=== PATIENT | male | born 1935 | race American Indian/Alaskan Native ===

== ENCOUNTER 2018-05-20 02:52 | Emergency (ER) | payer MEDICARE, OTHER ==
[2018-05-20] MEDS ORDERED: NACL 0.9% 1000 ML 2,000 ML IV ONE (03:00)
[2018-05-20] MEDS ORDERED: LEVOPHED DRIP 4 MG/NS 250 ML 4 MG/250 ML BAG IV SCH (03:00)
[2018-05-20] MEDS ORDERED: LEVOPHED DRIP 4 MG/NS 250 ML 4 MG/250 ML BAG IV ONE (03:00)
[2018-05-20] MEDS ORDERED: INTROPIN DRIP 800 MG/D5W 250 ML 800 MG/250 ML BAG IV ONE (03:00)
[2018-05-20] MEDS ORDERED: NACL 0.9% 1000 ML 1,000 ML ONE ×3 (03:01→05:38)
--- NOTE | 2018-05-20 03:53 | XRay Report ---
FINAL REPORT PROCEDURE: XR CHEST 1V AP TECHNIQUE: Chest radiograph anteroposterior view. CPT 21446 HISTORY: cardiac arrest COMPARISON: No prior studies are available for comparison. FINDINGS: Heart: Normal. Mediastinum/Vessels: Normal. Lungs/Pleural space: There is a diffuse reticular nodular pattern throughout both lungs. Acute infiltrate is suspected. No effusion or pneumothorax.. Bony thorax: No acute osseous abnormality. Life support devices: The endotracheal tube ends 4 centimeters above the [place]. A nasogastric tube ends below the hemidiaphragms.. IMPRESSION: There is a diffuse reticular nodular pattern infiltrates throughout both lungs. The endotracheal tube and nasogastric tube are properly positioned..
[2018-05-20 04:02] LABS: Hematocrit 24.3 % (35.5-45.6); Hemoglobin 7.8 gm/dl (11.8-15.2); Mean Corpuscular HGB Conc 32 % (32-34); Mean Corpuscular Hemoglobin 32 pg (28-32); Mean Corpuscular Volume 99 fl (84-94); Platelet Count 358 K/mm3 (140-440); Red Blood Count 2.46 M/mm3 (3.65-5.03); Red Cell Distribution Width 16.1 % (13.2-15.2)
--- NOTE | 2018-05-20 04:07 | Cat Scan Report ---
FINAL REPORT PROCEDURE: CT HEAD/BRAIN WO CON TECHNIQUE: Computerized tomography of the head was performed without contrast material. HISTORY: ams, arrest COMPARISON: No prior studies are available for comparison. FINDINGS: Skull and scalp: Normal. Paranasal sinuses: Normal. Ventricles and subarachnoid spaces: Normal. Cerebrum: There is no evidence of acute intracranial hemorrhage, hematoma or infarction. Minimal atrophy is noted. Slight periventricular deep white matter change.. Cerebellum and brainstem: No evidence of hemorrhage, acute infarction or mass. Vasculature: Normal. Comments: None. IMPRESSION: There is no evidence of an acute intracranial process. Mild atrophy and slight periventricular deep white matter change.
[2018-05-20 04:13] LABS: INR 1.67 (0.87-1.13)
[2018-05-20 04:14] LABS: Partial Thromboplastin Time 41.5 Sec. (24.2-36.6)
[2018-05-20 04:25] LABS: Alanine Aminotransferase 44 units/L (7-56); Albumin 2.2 g/dL (3.9-5); Bilirubin,Direct 0.6 mg/dL (0-0.2)
[2018-05-20 05:09] LABS: BUN/Creatinine Ratio 16; Blood Urea Nitrogen 16 mg/dL (9-20); Hemolysis Index 9
[2018-05-20 05:22] LABS: Band Neutrophils # (Manual) 0.2 K/mm3; Basophils % (Manual) 0 % (0.0-1.8); Eosinophils % (Manual) 0 % (0.0-4.3); Platelet Clumps Few; Platelet Estimate Consistent w Auto; RBC Morphology Normal; Total Cells Counted 100
[2018-05-20] MEDS ORDERED: SODIUM BICARBONATE 150 MEQ in D5W 1,000 ML IV ONE (05:29)
[2018-05-20] MEDS ORDERED: NACL 0.9% 1000 ML 1,000 ML IV ONE (05:45)
[2018-05-20] MEDS ORDERED: VANCOMYCIN/NS 1 GM/250 ML 1 GM/250 ML BAG IV SCH ×2 (06:00→20:00)
[2018-05-20] MEDS ORDERED: ZOSYN/NS 4.5GM/100ML 4.5 GM/100 ML VIAL IV SCH (06:00)
--- NOTE | 2018-05-20 06:52 | Emergency Department Report ---
ED CPR HPI - General Chief Complaint: Cardiac Arrest/CPR Stated Complaint: CARDIAC ARREST Time Seen by Provider: 05/20/18 03:19 Source: EMS Mode of arrival: Stretcher Limitations: Physical Limitation - History of Present Illness Initial Comments: 82-year-old male with metastatic cancer presents to the ED and cardiac arrest. Unknown down time, patient found by . Upon EMS arrival patient was pulseless and apneic in PEA. Patient was given 3 rounds of epi and 1 amp of bicarbonate. Patient did have return of spontaneous circulation with EMS. Family states patient has no longer on chemotherapy or radiation. States pain with trying to get patient into a hospice. However, family states patient is a full code. MD Complaint: found unresponsive -: unknown Place: home Bystander CPR Performed: No Shock Advised: No Initial Findings in the Field: unresponsive, no respirations, no pulse ROSC in the Field: Yes Treatments Prior to Arrival: intubation, chest compressions, epinephrine mgs # ( 3), sodium bicarbonate (1 amp) - Related Data Allergies Allergy/AdvReac Type Severity Reaction Status Date / Time No Known Allergies Allergy Verified 05/20/18 05:02 ED Review of Systems ROS: Stated complaint: CARDIAC ARREST Other details as noted in HPI Comment: Unobtainable due to pts medical conditions (cardiac arrest) ED Past Medical Hx - Past Medical History Hx of Cancer: Yes (Colon CA spread through body.) Hx Dementia: Yes Additional medical history: Small bowel obstruction - Social History Smoking Status: Unknown if ever smoked ED Physical Exam - General Limitations: Physical Limitation General appearance: in distress - Head Head exam: Present: atraumatic, normocephalic - Eye Eye exam: Present: other (fixed and dilated) - ENT ENT exam: Present: other (ET tube in place) - Neck Neck exam: Present: normal inspection - Respiratory Respiratory exam: Present: rales - Cardiovascular Cardiovascular Exam: Present: tachycardia, other - GI/Abdominal GI/Abdominal exam: Present: soft. Absent: distended - Extremities Exam Extremities exam: Present: normal inspection - Neurological Exam Neurological exam: Present: other (GCS=3) ED Course Vital Signs 05/20/18 05/20/18 05/20/18 02:52 03:04 03:14 Temperature 97.2 F L Pulse Rate 140 H 166 H 141 H Respiratory 20 18 Rate Blood Pressure 118/84 Blood Pressure 52/32 91/65 [Left] O2 Sat by Pulse 94 100 100 Oximetry 05/20/18 05/20/18 05/20/18 03:30 03:45 04:10 Temperature Pulse Rate 103 H 95 H 76 Respiratory 17 18 18 Rate Blood Pressure Blood Pressure 101/68 102/62 121/50 [Left] O2 Sat by Pulse 100 100 97 Oximetry 05/20/18 05/20/18 05/20/18 04:30 04:45 05:00 Temperature Pulse Rate 74 72 70 Respiratory 18 18 18 Rate Blood Pressure Blood Pressure 124/73 125/77 116/84 [Left] O2 Sat by Pulse 100 100 98 Oximetry 05/20/18 05/20/18 05/20/18 05:30 05:45 06:00 Temperature Pulse Rate 67 64 65 Respiratory 17 19 18 Rate Blood Pressure Blood Pressure 87/51 98/59 116/64 [Left] O2 Sat by Pulse 100 96 97 Oximetry 05/20/18 05/20/18 05/20/18 06:15 06:30 07:28 Temperature Pulse Rate 64 63 Respiratory 19 17 17 Rate Blood Pressure Blood Pressure 120/73 115/89 [Left] O2 Sat by Pulse 100 97 97 Oximetry 05/20/18 05/20/18 05/20/18 07:31 07:45 08:00 Temperature Pulse Rate 62 67 62 Respiratory 14 15 17 Rate Blood Pressure 102/64 115/55 Blood Pressure [Left] O2 Sat by Pulse 97 98 98 Oximetry 05/20/18 05/20/18 05/20/18 08:15 08:30 08:36 Temperature Pulse Rate 63 62 67 Respiratory 13 15 Rate Blood Pressure 114/63 116/60 116/60 Blood Pressure [Left] O2 Sat by Pulse 97 97 97 Oximetry 05/20/18 05/20/18 05/20/18 08:45 09:00 09:15 Temperature Pulse Rate 67 64 61 Respiratory 13 14 14 Rate Blood Pressure 112/64 108/72 108/64 Blood Pressure [Left] O2 Sat by Pulse 97 97 97 Oximetry 05/20/18 05/20/18 05/20/18 09:30 09:45 10:01 Temperature Pulse Rate 66 66 62 Respiratory 16 16 16 Rate Blood Pressure 106/67 95/70 96/64 Blood Pressure [Left] O2 Sat by Pulse 98 97 98 Oximetry 05/20/18 05/20/18 05/20/18 10:15 10:30 10:45 Temperature Pulse Rate 66 64 60 Respiratory 15 16 16 Rate Blood Pressure 103/58 92/62 90/57 Blood Pressure [Left] O2 Sat by Pulse 92 99 Oximetry 05/20/18 05/20/18 05/20/18 11:30 12:00 12:52 Temperature Pulse Rate 52 L 57 L 51 L Respiratory Rate Blood Pressure Blood Pressure 85/51 69/43 62/37 [Left] O2 Sat by Pulse 89 88 88 Oximetry 05/20/18 13:16 Temperature Pulse Rate 37 L Respiratory Rate Blood Pressure Blood Pressure [Left] O2 Sat by Pulse 78 L Oximetry - Central Line Placement Right Femoral Consent Obtained: emergent situation Time Out Performed: Yes MD Prep: mask, gown, gloves Central Line Prep: Chlorhexidine scrub, sterile drapes applied Ultrasound Used for Placement: No Central Line Lumen Inserted: triple Bloods Obtained for Lab: No Central Line Position: good blood return, all ports aspirated, flus, sutured in place with nyl Dressing Applied: Tegaderm Patient Tolerated Procedure: well Complications: none ED Medical Decision Making - Lab Data Result diagrams: 05/20/18 03:37 05/20/18 03:37 - EKG Data -: EKG Interpreted by Sc EKG shows normal: sinus rhythm, axis, QRS complexes, ST-T waves Rate: normal - EKG Data Interpretation: other (prolonged QT) - Radiology Data Radiology results: report reviewed, image reviewed - Medical Decision Making 82-year-old male with metastatic cancer status post cardiac arrest at home. Pt did have ROSC with EMS just prior to ED arrival. Upon ED arrival pt had a pulse , but lost it soon thereafter. ACLS was initiated, pt regained pulses. Currently maxed out on dopamine drip. Head CT negative. Sodium bicarbonate drip initiated due to acidosis. CTA chest ordered to r/o PE due to patient's history of cancer. Spoke w/ Dr Raines, agrees to admit the pt and follow-up on CTA results. Spoke at length with family regarding code status since family was in process of seeking Hospice care for pt. Family currently wishes for pt to be full code. - Differential Diagnosis PE, arrythmia, ACS, CVA Critical Care Time: Yes Critical care time in (mins) excluding proc time.: 35 Critical care attestation.: If time is entered above; I have spent that time in minutes in the direct care of this critically ill patient, excluding procedure time. Critical Care Time: 35 minutes ED Disposition Clinical Impression: Cardiac arrest, Metabolic acidosis Disposition: DC-[id number] OP ADMIT IP TO THIS HOSP Is pt being admited?: Yes Condition: Critical Referrals: PRIMARY CARE,MD [Primary Care Provider] - 3-5 Days
[2018-05-20 07:12] LABS: Bacteria,Urine 1+ /HPF (Negative); Bilirubin,Urine NEG (Negative); Blood,Urine LG (Negative); Color,Urine Amber (Yellow); Mucus,Urine FEW /HPF; Protein,Urine >500 mg/dL (Negative)
--- NOTE | 2018-05-20 07:24 | History and Physical Report ---
History of Present Illness Date of examination: 05/20/18 Date of admission: 05/20/18 Chief complaint: Status post cardiac arrest 2 History of present illness: 82-year-old male patient with significant history of metastatic cancer with impending bowel bladder biliary tree obstructions, recently discharged from [facility]. Patient and family were told that patient is critically ill with very poor prognosis And has less than one week to relieve, recommended comfort care and hospice Had cardiac arrest at home, brought by EMS, upon arrival patient had PEA arrest Received 3 rounds of AP and 1 amp of bicarbonate with return of spontaneous circulation. When I evaluated the patient, he shouldn't increase critically ill looking, intubated on ventilatory support Son Mr. Janes RAMIRES at the bedside, CODE STATUS discussed with him Requested full code at this point Son reports that trying to get the patient into hospice. Past History Past Medical History: other (metastatic colon cancer) Social history: no significant social history, full code Family history: hypertension Medications and Allergies Allergies Allergy/AdvReac Type Severity Reaction Status Date / Time No Known Allergies Allergy Verified 05/20/18 05:02 Active Meds: Active Medications Sodium Bicarbonate 150 meq/ (Dextrose) 1,150 mls @ 75 mls/hr IV DIRECT ONE Stop: 05/20/18 20:48 Dopamine HCl/Dextrose (Intropin Drip 800 Mg/D5w 250 Ml) 800 mg in 250 mls @ 23.814 mls/hr IV TITR ONE; Protocol Stop: 05/20/18 13:29 Last Admin: 05/20/18 03:04 Dose: 20 mcg/kg/min, 23.814 mls/hr Norepinephrine (Levophed Drip 4 Mg/Ns 250 Ml) 4 mg in 250 mls @ 7.5 mls/hr IV TITR HILDA; Protocol Vancomycin HCl (Vancomycin/Ns 1 Gm/250 Ml) 1 gm in 250 mls @ 167.007 mls/hr IV ONCE HILDA; Protocol Stop: 05/20/18 07:30 Review of Systems ROS unobtainable: due to mental status Exam - Constitutional Vitals: Temp Pulse Resp BP Pulse Ox 97.2 F L 63 17 115/89 97 05/20/18 02:52 05/20/18 06:30 05/20/18 06:30 05/20/18 06:30 05/20/18 06:30 General appearance: Present: severe distress, cachectic, other (critically looking, dilated pupils) - Neck Neck: Present: supple - Respiratory Respiratory effort: labored Respiratory: bilateral: diminished, rhonchi, negative: rales, wheezing - Cardiovascular Rhythm: regular Heart Sounds: Present: S1 & S2 - Extremities Extremities: no ischemia, No edema - Abdominal General gastrointestinal: Present: distended (heard), other (heart swelling entire upper abdomen) - Integumentary Integumentary: Present: clear, warm - Musculoskeletal Musculoskeletal: other (unresponsive) - Psychiatric Psychiatric: other (unresponsive) - Neurologic Neurologic: other (intubated on vent) Results - Labs CBC & Chem 7: 05/20/18 03:37 05/20/18 03:37 Labs: Abnormal lab results 05/20/18 05/20/18 05/20/18 Range/Units 03:37 03:37 03:37 WBC 3.9 L (4.5-11.0) K/mm3 RBC 2.46 L (3.65-5.03) M/mm3 Hgb 7.8 L (11.8-15.2) gm/dl Hct 24.3 L (35.5-45.6) % MCV 99 H (84-94) fl RDW 16.1 H (13.2-15.2) % Nucleated RBC % 1.0 H (0.0-0.9) % Lymphocytes # (Manual) 0.8 L (1.2-5.4) K/mm3 PT 20.7 H (12.2-14.9) Sec. INR 1.67 H (0.87-1.13) APTT 41.5 H (24.2-36.6) Sec. POC ABG pH (7.35-7.45) POC ABG pCO2 (35-45) POC ABG pO2 (80-105) Carbon Dioxide 14 L (22-30) mmol/L Glucose 186 H (75-100) mg/dL Direct Bilirubin (0-0.2) mg/dL AST (5-40) units/L Alkaline Phosphatase (35-129) units/L Total Protein (6.3-8.2) g/dL Albumin (3.9-5) g/dL Urine WBC (Auto) (0.0-6.0) /HPF 05/20/18 05/20/1818 Range/Units 03:37 04:22 06:44 WBC (4.5-11.0) K/mm3 RBC (3.65-5.03) M/mm3 Hgb (11.8-15.2) gm/dl Hct (35.5-45.6) % MCV (84-94) fl RDW (13.2-15.2) % Nucleated RBC % (0.0-0.9) % Lymphocytes # (Manual) (1.2-5.4) K/mm3 PT (12.2-14.9) Sec. INR (0.87-1.13) APTT (24.2-36.6) Sec. POC ABG pH 6.896 L (7.35-7.45) POC ABG pCO2 47.9 H (35-45) POC ABG pO2 388 H (80-105) Carbon Dioxide (22-30) mmol/L Glucose (75-100) mg/dL Direct Bilirubin 0.6 H (0-0.2) mg/dL AST 61 H (5-40) units/L Alkaline Phosphatase 184 H (35-129) units/L Total Protein 5.0 L (6.3-8.2) g/dL Albumin 2.2 L (3.9-5) g/dL Urine WBC (Auto) 27.0 H (0.0-6.0) /HPF Assessment and Plan --s/p cardiac arrestx2 Status post CPR, patient is unresponsive Continue current management --Acute respiratory failure; Continue ventilatory support, nebulizers Pulmonary critical consult, poor prognosis --Hypotension/shock; requiring pressors Continue dopamine, titrate systolic blood pressures to more than 100 --History of metastatic colon cancer; Very poor prognosis, supportive care --Anemia; probably secondary to malignant disease process Closely monitor H&H and transfuse as needed --Severe lactic acidosis; secondary to metabolic acidosis Respiratory failure, rule out sepsis IV fluids and supportive care, cultures as needed --Severe malnutrition; hypoalbuminemia Nutrition supplements, nutrition consult as needed --Coagulopathy; no evidence of bleeding, closely monitor --DVT prophylaxis; SCDs --Full CODE STATUS --DC planning per case management/ hospice evaluation Patient is critically ill with very poor prognosis Patient's condition and treatment plan CODE STATUS Extensively discussed with the son Mr. Janes Newkirk at the bedside He requested full code Recommend hospice. Critical care time 50 minutes
[2018-05-20] MEDS ORDERED: PROVENTIL IH PRN (08:19)
[2018-05-20 09:57] LABS: Creatine Kinase MB 40.2 ng/mL (0.0-4.0)
[2018-05-20] MEDS ORDERED: PROTONIX IV SCH (10:00)
[2018-05-20] MEDS ORDERED: NACL 0.9% 1000 ML 1,000 ML IV SCH (10:00)
[2018-05-20 10:28] LABS: Chol/HDL Ratio 6.45 %
--- NOTE | 2018-05-20 11:30 | Consultation ---
History of Present Illness Consult date: 05/20/18 Requesting physician: MADI YUN Consult reason: cardiac arrest History of present illness: This is a 82-year-old male with history of metastatic cancer colon cancer who was recently discharged from the [facility] and was considering hospice therapy had a cardiopulmonary arrest patient had advanced cardiac life support and resuscitation patient was intubated patient is on multiple pressors and unresponsive niece is at the bedside Past History Past Medical History: other (metastatic colon cancer) Past Surgical History: Other Social history: no significant social history, full code Family history: hypertension Medications and Allergies Allergies Allergy/AdvReac Type Severity Reaction Status Date / Time No Known Allergies Allergy Verified 05/20/18 05:02 Active Meds: Active Medications Albuterol (Proventil) 2.5 mg IH Q4HRT PRN PRN Reason: Shortness Of Breath Enoxaparin Sodium (Lovenox) 40 mg SUB-Q QDAY@2200 HILDA Sodium Bicarbonate 150 meq/ (Dextrose) 1,150 mls @ 75 mls/hr IV DIRECT ONE Stop: 05/20/18 20:48 Last Admin: 05/20/18 06:00 Dose: 75 mls/hr Dopamine HCl/Dextrose (Intropin Drip 800 Mg/D5w 250 Ml) 800 mg in 250 mls @ 23.814 mls/hr IV TITR ONE; Protocol Stop: 05/20/18 13:29 Last Admin: 05/20/18 03:04 Dose: 20 mcg/kg/min, 23.814 mls/hr Norepinephrine (Levophed Drip 4 Mg/Ns 250 Ml) 4 mg in 250 mls @ 7.5 mls/hr IV TITR HILDA; Protocol Sodium Chloride (Nacl 0.9% 1000 Ml) 1,000 mls @ 150 mls/hr IV DIRECT HILDA Vancomycin HCl (Vancomycin/Ns 1 Gm/250 Ml) 1 gm in 250 mls @ 166.667 mls/hr IV Q12H HILDA Piperacillin Sod/Tazobactam Sod (Zosyn/Ns 3.375gm/50ml) 3.375 gm in 50 mls @ 100 mls/hr IV Q8H HILDA; Protocol Pantoprazole Sodium (Protonix) 40 mg IV QDAY HILDA Last Admin: 05/20/18 10:30 Dose: 40 mg Review of Systems ROS unobtainable: due to mental status Physical Examination Vital Signs Temp Pulse Resp BP Pulse Ox 97.2 F L 140 H 20 52/32 94 05/20/18 02:52 05/20/18 02:52 05/20/18 02:52 05/20/18 02:52 05/20/18 02:52 General appearance: cachectic HEENT: Positive: Other (nonreactive) Neck: Positive: neck supple Cardiac: Positive: Reg Rate and Rhythm Lungs: Positive: clear to auscultation Neuro: Positive: Other (unresponsive) Abdomen: Positive: Soft Extremities: Present: edema Results 05/20/18 03:37 05/20/18 03:37 Cardiac Enzymes 05/20/18 05/20/18 Range/Units 03:37 09:27 AST 61 H (5-40) units/L CK-MB (CK-2) 40.2 H (0.0-4.0) ng/mL Coagulation 05/20/18 Range/Units 03:37 PT 20.7 H (12.2-14.9) Sec. INR 1.67 H (0.87-1.13) APTT 41.5 H (24.2-36.6) Sec. Lipids 05/20/18 Range/Units 09:27 Triglycerides 93 (2-149) mg/dL Cholesterol 142 (50-199) mg/dL HDL Cholesterol 22 L (40-59) mg/dL Cholesterol/HDL Ratio 6.45 % CBC 05/20/18 Range/Units 03:37 WBC 3.9 L (4.5-11.0) K/mm3 RBC 2.46 L (3.65-5.03) M/mm3 Hgb 7.8 L (11.8-15.2) gm/dl Hct 24.3 L (35.5-45.6) % Plt Count 358 (140-440) K/mm3 Comprehensive Metabolic Panel 05/20/18 05/20/18 Range/Units 03:37 03:37 Sodium 143 (137-145) mmol/L Potassium 4.4 (3.6-5.0) mmol/L Chloride 99.3 (98-107) mmol/L Carbon Dioxide 14 L (22-30) mmol/L BUN 16 (9-20) mg/dL Creatinine 1.0 (0.8-1.5) mg/dL Glucose 186 H (75-100) mg/dL Calcium 9.0 (8.4-10.2) mg/dL Direct Bilirubin 0.6 H (0-0.2) mg/dL Indirect Bilirubin 0.3 mg/dL AST 61 H (5-40) units/L ALT 44 (7-56) units/L Alkaline Phosphatase 184 H (35-129) units/L Total Protein 5.0 L (6.3-8.2) g/dL Albumin 2.2 L (3.9-5) g/dL EKG interpretations - Telemetry EKG Rhythm: Sinus Rhythm (sinus rhythm nonspecific ST-T is) Assessment and Plan Status post cardiac arrest Respiratory failure number Metastatic colon cancer nstemi type 2 secondary to cardiac arrest In view of patient's events advanced cancer poor prognosis consider hospice therapy conservative management see patient as needed and discussed with patient 's niece and brother
[2018-05-20] MEDS ORDERED: ADRENALIN ONE (13:30)
[2018-05-20] MEDS ORDERED: SODIUM BICARBONATE IV ONE (13:30)
--- NOTE | 2018-05-20 14:05 | Death Summary ---
Summary - Providers Date of service: 05/20/18 Consults: 05/20/18 08:45 Consult to Physician [CONS] Routine Comment: I d/w Consulting Provider: YUMIKO TAMEZ Physician Instructions: Reason For Exam: Cr.Care consult/s/p Cardiac arrest/Ac.Resp failure 05/20/18 08:59 Consult to Physician [CONS] Routine Comment: I d/w cardiology [facility] Consulting Provider: IQRA AYALA Physician Instructions: Reason For Exam: s/p Cardiac arrest Attending: MADI YUN - summary Date of admission: 05/20/18 07:14 Date of : 05/20/18 (13:34 hrs) Reason for admission: s/p cardiac arrest . Significant findings: 82-year-old male patient with significant history of metastatic cancer with impending bowel bladder biliary tree obstructions, recently discharged from [facility] Patient and family were told that patient is critically ill with very poor prognosis And has less than a couple of weeks life expectancy and recommended comfort care and hospice Patient had cardiac arrest at home, brought by EMS, upon arrival patient had PEA arrest, he received CPR with return of spontaneous circulation. Patient was intubated on ventilatory support Admitted with acute hypoxic respiratory failure, status post cardiac arrest, severe metabolic acidosis, severe lactic acidosis Hypotension requiring pressors, severe malnutrition, coagulopathy , NSTEMI and poor prognosis Patient was admitted to ICU, cardiology has evaluated the patient, advised medical management Patient's condition , treatment plan , poor prognosis and CODE STATUS was discussed with son Mr. Janes Mtz[POA] He requested full code at this point Patient continued to deteriorate, Mr. Dominguez the son requested the patient to be transferred [facility] Explained to him that patient is critically unstable for transfer and we will consider once patient is more stable. Patient had again another cardiac arrest, family was at the bedside, CPR was done per ACLS protocol by ER physician Patient could not be revived, pronounced on 05/20/2018 at 13:34 hrs. Family was at the bedside spent total 60 minutes coordinating the patient's care Cause of ; Acute hypoxic respiratory failure Cardiac arrest 3 Hypotension/shock NSTEMI Severe lactic acidosis Metabolic acidosis End-stage metastatic colon cancer Coagulopathy Severe malnutrition Anemia Rhabdomyolysis Pertinent studies: CT head without contrast; no evidence of acute intracranial process mild atrophy Chest x-ray; diffuse reticular nodular pattern infiltrates throughout both lungs - Final diagnosis (1) Acute respiratory failure with hypoxia Note: Final diagnosis: (2) Metastatic neoplastic disease Note: Final diagnosis: (3) Cardiac arrest Note: Final diagnosis: (4) Colon cancer Note: Final diagnosis: (5) Metabolic acidosis Note: Final diagnosis: (6) Non-ST elevation (NSTEMI) myocardial infarction Note: Final diagnosis: (7) Lactic acidosis Note: Final diagnosis: (8) Coagulopathy Note: Final diagnosis: (9) Severe malnutrition Note: Final diagnosis: (10) Anemia Note: Final diagnosis:
--- NOTE | 2018-05-20 14:23 | Event Note ---
Date: 05/20/18 Patient had cardiac arrest again, Received CPR per ACLS protocol, run by ER physician Patient could not be revived, Pronounced at 13:34hrs[01:34 pm] on 2017 Time of 13:34 hrs. on 05/20/2018 Family at the bedside
[2018-05-20] MEDS ORDERED: ZOSYN/NS 3.375GM/50ML 3.375 GM/50 ML BAG IV SCH (16:00)
[2018-05-20 20:19] VITALS: BP 62/37
[2018-05-20] MEDS ORDERED: LOVENOX SUB-Q SCH (22:00)
== END 2018-05-20 13:45 ==
LOC: ED 02:52 → UNDOADMIN 07:14 → CC1 07:14
DX: I46.9 Cardiac arrest, cause unspecified (principal); E43 Unspecified severe protein-calorie malnutrition; Z68.21 Body mass index [BMI] 21.0-21.9, adult; E66.9 Obesity, unspecified; I25.2 Old myocardial infarction; F03.90 Unspecified dementia, unspecified severity, without behavioral disturbance, psychotic disturbance, mood disturbance, and anxiety; Z85.038 Personal history of other malignant neoplasm of large intestine; Z86.2 Personal history of diseases of the blood and blood-forming organs and certain disorders involving the immune mechanism
CPT/HCPCS: 36415; 36566; 43753; 51702; 70450; 71045; 80048; 80061; 80074; 81001; 82140; 82550; 82553; 82803; 84484; 85007; 85025; 85610; 85730; 87040; 92950; 93005; 93010; 93306; 94002; 96365; 96366; 96368; 96375; 99291; C9113; J0171; J2543; J3370; J7030; J7070